=== PATIENT | female | born 1950 | race Caucasian/White ===

== ENCOUNTER 2017-10-19 11:49 | Emergency (ER) | payer MEDICARE, OTHER ==
--- NOTE | 2017-10-19 12:15 | ED PDOC ---
Arrival/HPI - General Time Seen by Provider: 10/19/17 12:06 Historian: EMS - History of Present Illness Narrative History of Present Illness (Text): 10/19/17 12:00 67 year old female, with past medical history of hypertension, COPD, pancreatitis and sleep disorder, presents to the Emergency department via EMS for unresponsiveness prior to arrival. Patient was found unresponsive on the shower floor by family and EMS was informed immediately. Upon EMS arrival, CPR was initiated without rosc after 6 rounds and was brought to the Emergency department. CPR was continued and epinephrine was administered upon arrival to the Emergency department. After continued effort with 2 rounds of CPR and intubation, no rosc was achieved and patient was pronounced at 11:55am. Family is at bedside. HPI and ROS limited due to patient's unresponsive state. PMD: Dr. Greer Time/Duration: Prior to Arrival Symptom Onset: Sudden Symptom Course: Unchanged Activities at Onset: Light Context: Home Past Medical History - Provider Review Nursing Documentation Reviewed: Yes - Infectious Disease Hx of Infectious Diseases: None - Tetanus Immunization Tetanus Immunization: Unknown - Cardiac Hx Hypertension: Yes - Pulmonary Hx Chronic Obstructive Pulmonary Disease (COPD): Yes - Neurological Hx Neurological Disorder: No - HEENT Hx HEENT Disorder: Yes (READING GLASSES) - Renal Hx Renal Disorder: No - Endocrine/Metabolic Hx Endocrine Disorders: No - Hematological/Oncological Hx Blood Disorders: No - Integumentary Hx Dermatological Disorder: Yes Hx Eczema: Yes - Musculoskeletal/Rheumatological Hx Musculoskeletal Disorders: Yes Hx Falls: Yes Hx Fractures: Yes (left humerus) - Gastrointestinal Hx Gastrointestinal Disorders: Yes Hx Gastritis: Yes - Genitourinary/Gynecological Hx Genitourinary Disorders: No - Psychiatric Hx Psychophysiologic Disorder: No Hx Substance Use: No - Past Surgical History Past Surgical History: No Previous - Surgical History Hx Musculoskeletal Surgery: (CLOSED REDUCTION LEFT HUMERUS) Other/Comment: PANCREAS SURGERY 10 YEARS AGO - Anesthesia Hx Anesthesia: Yes Hx Anesthesia Reactions: No Hx Malignant Hyperthermia: No - Suicidal Assessment Feels Threatened In Home Enviroment: No Family/Social History - Physician Review Nursing Documentation Reviewed: Yes Family/Social History: No Known Family HX Smoking Status: Heavy Smoker > 10 Cigarettes Daily Hx Alcohol Use: No Hx Substance Use: No Hx Substance Use Treatment: No Allergies/Home Meds Allergies/Adverse Reactions: Allergies No Known Allergies Allergy (Verified 10/19/17 12:06) Home Medications: Home Meds Medication Instructions Recorded Confirmed Lisinopril/Hydrochlorothiazide 1 each PO DAILY 10/19/17 10/19/17 [Lisinopril-Hctz 10-12.5 mg Tab] Metformin HCl [Glucophage] 500 mg PO BID 10/19/17 10/19/17 Naproxen [Naprosyn] 500 mg PO DAILY 10/19/17 10/19/17 Pantoprazole [Protonix] 40 mg PO DAILY 10/19/17 10/19/17 Zolpidem [Ambien] 10 mg PO HS 10/19/17 10/19/17 Review of Systems - Review of Systems Systems not reviewed;Unavailable: Other (Unresponsive) Cardiovascular: Other (Cardiac arrest) Physical Exam Vital Signs Reviewed: Yes Vital Signs Temp 10/19/17 12:14 88 F L Temperature: Hypothermic Pulse: Pulseless Respiratory Rate: Mechanically Ventilated Appearance: Positive for: Other (mottle) Pain Distress: None Mental Status: Positive for: other (unresponsive) - Systems Exam Head: Present: Atraumatic Pupils: Present: Non-Reactive Respiratory/Chest: Present: Other (No breath sounds) Cardiovascular: Present: Other (No rhythm; pulseless) Back: Present: Other (ecchymosis and abrasion to left hip) Upper Extremity: Present: Cyanosis (fingers). No: NORMAL PULSES Lower Extremity: Present: Cyanosis. No: NORMAL PULSES Neurological: Present: Other (Unresponsive) Skin: Present: Other (Mottle) Medical Decision Making ED Course and Treatment: 10/19/17 12:00 Impression: 67 year old female presents to the Emergency department s/p cardiac arrest. Differential Diagnosis included but are not limited to: cardiac arrest Plan: -- Reassess and disposition Prior Visits: Notes and results from previous visits were reviewed. Progress Notes: 10/19/17 12:00 Upon arrival to the Emergency department, patient is pulseless and breathless. CPR was continued, epi was administered and patient was intubated with 7.5 ET tube. After 2 rounds of CPR and continued effort, patient remains unresponsive without any pulse. Patient was thus pronounced at 11:55 am. 10/19/17 12:01 Discussed situation with patient's family and was made aware of the treatment provided. Family understands and is currently at bedside. 10/19/17 12:15 Discussed case with PMD: Dr. Greer, who is aware and agrees with Emergency department management plan. - Scribe Statement The provider has reviewed the documentation as recorded by the Scribe Remberto Gregorio. All medical record entries made by the Scribe were at my direction and personally dictated by me. I have reviewed the chart and agree that the record accurately reflects my personal performance of the history, physical exam, medical decision making, and the department course for this patient. I have also personally directed, reviewed, and agree with the discharge instructions and disposition. Disposition/Present on Arrival - Present on Arrival Any Indicators Present on Arrival: No History of DVT/PE: No History of Uncontrolled Diabetes: No Urinary Catheter: No History Surgical Site Infection Following: None - Disposition Have Diagnosis and Disposition been Completed?: Yes Diagnosis: Cardiac arrest Disposition: WITH WITHOUT AUTOPSY Disposition Time: 13:33 Patient Problems: Current Active Problems Problem Status Onset Cardiac arrest Acute Condition: Forms: [employer] (Indonesian)
[2017-10-19 12:21] VITALS: BMI 16.5
[2017-10-19 13:56] VITALS: PULSE 0
[2017-10-19 14:43] VITALS: BP 0/0; RESP 0; TEMP 0; O2SAT 0
== END 2017-10-19 14:43 ==
LOC: ED 11:49
DX: I46.9 Cardiac arrest, cause unspecified (principal); I10 Essential (primary) hypertension; J44.9 Chronic obstructive pulmonary disease, unspecified; F17.210 Nicotine dependence, cigarettes, uncomplicated